=== PATIENT | male | born 1970 | race Caucasian/White ===

== ENCOUNTER 2024-09-15 09:39 | Emergency (ER) | payer BC, SELFPAY ==
[2024-09-15] VITALS (8 sets, daily range): BP systolic 124–150; BP diastolic 74–99; PULSE 69–82; RESP 12–26; TEMP 36.4–36.8; O2SAT 95–99; BMI 38.7
--- NOTE | 2024-09-15 10:03 | RAD_ITS ---
PROCEDURE: ANKLE MIN 3 VIEWS REASON FOR EXAM: Deformity of the ankle following a fall. TECHNIQUE: 3 views of the right ankle COMPARISON: None FINDINGS: Nondisplaced fracture of the distal fibula. Avulsion fracture of the medial malleolus. Disruption of the ankle mortise. Plantar spur. Soft tissue swelling. RAD/Ankle min 3 Views IMPRESSION: Oblique fracture of the distal fibula with avulsion fracture of the medial mall eolus and subluxation of the ankle mortise. Calcaneal spur. Soft tissue swelling. Reading Location: [place] [id number]
--- NOTE | 2024-09-15 10:07 | ED.VIS.LOWEX ---
HPI History of Present Illness Chief Complaint: Lower Extremity Injury Informant: patient and EMS Narrative Narrative: 53-year-old male from [facility] currently working as a long-trash hauler. Patient states he got out of his cab this morning slipped on the ice and injured the right ankle. EMS notes deformity placed in a vacuum splint. Patient denies any known medical problems. 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 He denies any other injuries PFSH PFSH Medical History no medical history Home Medications ?Medication ?Instructions ?Recorded ?Last Taken ?Type oxycodone-acetaminophen 5 mg-325 1 tab PO Q6H PRN pain 3 days #12 09/15/24 Unknown Rx mg tablet (Percocet) tabs Allergy/AdvReac Type Severity Reaction Status Date / Time No Known Allergies Allergy Verified 09/15/24 09:41 Social History Smoking Status: Never smoker ROS ROS ED Constitutional Constitutional ED: Denies chills or weight loss Eyes Eyes: Denies change in vision or diplopia ENT ENT ED: Denies ear pain, rhinorrhea or sore throat Cardiovascular Cardiovascular: Denies chest pain, orthopnea, palpitations or racing heartbeat Respiratory/Chest Respiratory/Chest: Denies cough, dyspnea or orthopnea Gastrointestinal Gastrointestinal: Denies abdominal pain, diarrhea, nausea or vomiting Genitourinary Genitourinary ED: Denies dysuria, hematuria or urinary frequency Musculoskeletal Musculoskeletal: Reports other Details: See history of present illness ; Denies arthralgias or myalgias Integumentary Denies abscess or rash Neurologic Neurologic: Denies headache(s) or weakness Psychiatric Psychiatric: Denies anxiety, depression, suicidal ideation or suicidal thoughts Endocrine Endocrinology: Denies polydipsia, polyphagia or polyuria Allergic/Immunologic Allergic/Immunologic ED: Denies mouth swelling, tongue swelling or urticaria EXAM Physical Exam Const Vital Signs: 09/15/24 09:42 09/15/24 10:23 09/15/24 10:35 Temperature 97.6 F L 98 F Temperature Source Oral Pulse Rate 82 76 Pulse Rate [1 (Initial Baseline)] Pulse Rate [2] Pulse Rate [3] Respiratory Rate 18 14 Respiratory Rate [1 (Initial Baseline)] Respiratory Rate [2] Respiratory Rate [3] Blood Pressure 140/74 H Blood Pressure [1 (Initial Baseline)] Blood Pressure [2] Blood Pressure [3] Blood Pressure Mean 96 Baseline BP 146/83 Pulse Ox 95 97 Oxygen Delivery Method Room Air Nasal Cannula Oxygen Delivery Method [1 (Initial Baseline)] Oxygen Delivery Method [2] Oxygen Delivery Method [3] Oxygen Flow Rate (L/min) 4 Oxygen Flow Rate (L/min) [2] Oxygen Flow Rate (L/min) [3] EtCo2 (Normal 35-45 , high quality CPR 10-20 & ROSC>/=40mmHg 34 EtCo2 (Normal 35-45 , high quality CPR 10-20 & ROSC>/=40mmHg [1 (Initial Baseline)] EtCo2 (Normal 35-45 , high quality CPR 10-20 & ROSC>/=40mmHg [2] EtCo2 (Normal 35-45 , high quality CPR 10-20 & ROSC>/=40mmHg [3] 09/15/24 10:39 09/15/24 10:55 09/15/24 11:00 Temperature Temperature Source Pulse Rate 78 69 Pulse Rate [1 (Initial Baseline)] 79 Pulse Rate [2] 75 Pulse Rate [3] 71 Respiratory Rate 12 12 Respiratory Rate [1 (Initial Baseline)] 26 H Respiratory Rate [2] 21 H Respiratory Rate [3] 16 Blood Pressure 124/95 H 148/94 H Blood Pressure [1 (Initial Baseline)] 150/85 H Blood Pressure [2] 126/83 H Blood Pressure [3] 130/84 H Blood Pressure Mean Baseline BP Pulse Ox 97 97 Oxygen Delivery Method Nasal Cannula Nasal Cannula Oxygen Delivery Method [1 (Initial Baseline)] Nasal Cannula Oxygen Delivery Method [2] Non-Rebreather Oxygen Delivery Method [3] Non-Rebreather Oxygen Flow Rate (L/min) 4 2 Oxygen Flow Rate (L/min) [2] 15 Oxygen Flow Rate (L/min) [3] 15 EtCo2 (Normal 35-45 , high quality CPR 10-20 & ROSC>/=40mmHg 37 32 EtCo2 (Normal 35-45 , high quality CPR 10-20 & ROSC>/=40mmHg [1 (Initial Baseline)] 36 EtCo2 (Normal 35-45 , high quality CPR 10-20 & ROSC>/=40mmHg [2] 36 EtCo2 (Normal 35-45 , high quality CPR 10-20 & ROSC>/=40mmHg [3] 34 09/15/24 11:05 Temperature Temperature Source Pulse Rate 76 Pulse Rate [1 (Initial Baseline)] Pulse Rate [2] Pulse Rate [3] Respiratory Rate 14 Respiratory Rate [1 (Initial Baseline)] Respiratory Rate [2] Respiratory Rate [3] Blood Pressure 146/99 H Blood Pressure [1 (Initial Baseline)] Blood Pressure [2] Blood Pressure [3] Blood Pressure Mean Baseline BP Pulse Ox 97 Oxygen Delivery Method Room Air Oxygen Delivery Method [1 (Initial Baseline)] Oxygen Delivery Method [2] Oxygen Delivery Method [3] Oxygen Flow Rate (L/min) Oxygen Flow Rate (L/min) [2] Oxygen Flow Rate (L/min) [3] EtCo2 (Normal 35-45 , high quality CPR 10-20 & ROSC>/=40mmHg 35 EtCo2 (Normal 35-45 , high quality CPR 10-20 & ROSC>/=40mmHg [1 (Initial Baseline)] EtCo2 (Normal 35-45 , high quality CPR 10-20 & ROSC>/=40mmHg [2] EtCo2 (Normal 35-45 , high quality CPR 10-20 & ROSC>/=40mmHg [3] Positive well nourished and well developed General Appearance ED: well developed HEENT Reports normocephalic, head/scalp atraumatic and moist mucous membranes Eyes PERRL and EOMs intact bilaterally Neck full ROM, no lymphadenopathy, supple and no JVD Resp normal respiratory effort and clear to auscultation bilaterally Cardio regular rate, regular rhythm and no murmurs GI normal to inspection, nondistended, normoactive bowel sounds and non-tender Palpation: soft Back/Spine no CVA tenderness and normal ROM Extremity Extremity Narrative: There is a obvious deformity to the right ankle. There is tenting of the skin medially. Significant swelling and ecchymosis is noted. Distally the toes appear neurovascularly intact. General Extremety ED: Negative for edema General Extremity: Negative for edema Neuro oriented x3 and CN's II-XII intact bilaterally Sensorium / Orientation: alert Motor Exam: strength 5/5 throughout Psych mental status grossly normal Mood & Affect: Negative for depressed or tearful Skin no rashes or lesions noted and no wounds MDM MDM MDM Narrative Medical decision making narrative: Differential diagnosis includes but not limited to fracture dislocation neurovascular injury ligamentous injury tendon injury My independent interpretation of the plain films of the right ankle is a bimalleolar fracture dislocation. There is mortise disruption. I spoke with the patient and recommended procedural sedation for reduction. Patient provided informed written consent. Patient received pain medication. He was prepped for sedation in the usual manner. Patient received 1 mg/kg bolus of propofol to achieve adequate sedation followed by 0.5 mg bolus to finish procedure. Patient readily achieved sedation. The ankle was reduced and he was placed in a well-padded posterior stirrup Ortho-Glass splint. He recovered from sedation without difficulty. He is neurovascularly intact post reduction. Capillary refill less than 2 seconds. Total length of sedation 11 minutes. Plan dependent interpretation of the postreduction films is improved alignment with reduction of fracture. I discussed the case with on-call electronic prepress operator Dr. Tariq. Is that he is from [place] and will have a prolonged recovery phase is felt best that he return to [place] for the surgery. I spoke with the patient regarding this. Will have social work help him. I will write for pain medication. He was told to be nonweightbearing till cleared by orthopedics. He was given crutches and a copy of his disc. History & Record Review Discussion w/independent historian: EMS personnel and Patient Radiography Diagnostic Testing: Clinical Impression(s) from Imaging Studies Ankle X-Ray 09/15/24 10:03 IMPRESSION: Oblique fracture of the distal fibula with avulsion fracture of the medial malleolus and subluxation of the ankle mortise. Calcaneal spur. Soft tissue swelling. Reading Location: [id number] Ankle X-Ray 09/15/24 10:50 IMPRESSION: Satisfactory postreduction films of the right ankle. Reading Location: [facility] Management Discussion w/another healthcare provider: [employer] (Dr Tariq) Procedures Procedural Sedation 1 (Initial Baseline): Consent Signed: Yes Any Problems With Anesthesia: No You/Your family experience fever (hyperthermia) w/anesthesia: No Sedation medication: Propofol Dose: 150 Route: IV Total Moderate Sedation Units: 11 Maliampati Score: Class II ASA Classification: I Discharge Plan Triage Chief Complaint: Lower Extremity Injury ED Provider: Paddy Tena Dx/Rx/DC Orders Clinical Impression: Closed trimalleolar fracture, Fall Instructions: ED Ankle Fracture Prescriptions: New oxycodone-acetaminophen [Percocet] 5-325 mg tablet 1 tab PO Q6H PRN (Reason: pain) 3 Days Qty: 12 0RF Primary Care Provider: Care Physician,No Primary Referrals: David Tariq DPM [Med Staff - Active Staff] - As soon as possible (If you choose to stay local and have surgery and rehabilitation.) Care Physician,No Primary [Primary Care Provider] - Activity Restrictions/Additional Instructions: As discussed you have a fracture of your ankle that will require surgery. This will require you to not bear any weight (use crutches) for couple months. If you are staying local please follow-up with Dr. Tariq as he can do your surgery. However given the prolonged amount of time you will be out of work and on crutches it may be in your best interest to have surgery back in [place]. I would recommend calling an orthopedic surgeon when you return home. Tell them that you have a trimalleolar fracture out of state that needs surgery Print Language: [place] Disposition Disposition: Home, Self Care
[2024-09-15] MEDS: Ondansetron 4 MG/2 ML Vial IV (10:15)
[2024-09-15] MEDS: Morphine 4 MG/ML Syringe IV (10:15)
--- NOTE | 2024-09-15 10:50 | RAD_ITS ---
PROCEDURE: RIGHT ANKLE, THREE VIEWS REASON FOR EXAM: Postreduction. TECHNIQUE: 3 views of the right ankle COMPARISON: 09/15/2024. FINDINGS: A by malleolar fracture redemonstrated involving the medial and lateral malleoli. Decrease in the displacement of the medial malleolar fracture fragments. Oblique fracture fragments of the lateral malleolus are in good alignment. Mild widening of the medial aspect of the ankle mortise by approximately 8 mm, much improved when compared to the earlier study. Soft tissue swelling. Fiberglass cast. RAD/Ankle min 3 Views IMPRESSION: Satisfactory postreduction films of the right ankle. Reading Location: [facility]
[2024-09-15] MEDS: Propofol 200 MG/20 ML Vial IV BOLUS (10:53)
--- NOTE | 2024-09-15 16:26 | CM.ED ---
Social Work Patients nurse requested consult. 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 As he was getting out of his truck, he slipped on ice and fractured his ankle. Patient was contemplating what to do after discharge and asked for information regarding local hotels and flight information to [place]. SW gave patient information on local hotels with prices and flight information from [facility] [employer] to [place]. Patient decided to go to airport and try to get flight tonight. Patient used uber to get to airport. No further needs identified. Mariah Lopez, [employer] SUPERVISOR, ASSEMBLY ASSOCIATE
== END 2024-09-15 12:51 | disposition home or self-care (01) ==
PROVIDERS: Emergency Provider Emergency Medicine; Visit Provider Emergency Medicine
DX: S82.851A Displaced trimalleolar fracture of right lower leg, initial encounter for closed fracture (principal); W00.0XXA Fall on same level due to ice and snow, initial encounter; Y99.0 Civilian activity done for income or pay
CPT/HCPCS: 27818; 29515; 73610; 96374; 96375; 99152; 99285; A4216; J2405